=== PATIENT | male | born 1990 | race Caucasian/White ===

== ENCOUNTER 2021-03-27 16:58 | Emergency (ER) | payer SELFPAY ==
[~2021-03-27] VITALS: Ht 170.2 cm; Wt 56.8 kg
[2021-03-27 17:01] VITALS: TEMP 98.4
[2021-03-27 17:57] LABS: BASO # 0.1 (0.0-0.2); EOS # 0.1 (0.0-0.7); EOS % 0.7 % (0-4.0); GRAN # 5.9 (1.4-6.5); GRAN % 63.7 % (42.2-75.2); HEMATOCRIT 44.4 % (42.0-52.0); HEMOGLOBIN 15.4 g/dl (13.5-18.0); LYMPH # 2.1 (1.2-3.4); LYMPH % 22.9 % (20.0-51.0); MEAN CELL VOLUME 84 fl (80.0-100.0); MEAN CORPUSCULAR HEMOGLOBIN 29 pg (27.0-31.0); MEAN CORPUSCULAR HGB CONC 35 g/dl (33.0-37.0); MEAN PLATELET VOLUME 10.4 fl (7.4-10.4); MONO # 1.1 (0.1-0.6); MONO % 11.5 % (1.7-9.3); PLATELET COUNT 276 K/mm3 (130-400); RED BLOOD COUNT 5.26 M/mm3 (4.20-5.60); REDCELL DISTRIBUTION WIDTH-CV 12.2 % (11.5-14.5)
[2021-03-27 18:30] LABS: BILIRUBIN,TOTAL 0.7 mg/dL (0.0-1.0); CALCIUM 10.4 mg/dL (8.4-10.2); CREATININE, serum 0.76 (0.66-1.25); POTASSIUM 3.4 mmol/L (3.4-5.0); TOTAL PROTEIN 8.4 gm/dL (6.4-8.2)
[2021-03-27] MEDS ORDERED: ATIVAN 0.50.5 MG/TAB PO (18:41)
[2021-03-27 19:08] VITALS: BP 118/70; PULSE 72
== END 2021-03-27 19:10 | disposition home or self-care (01) ==
LOC: COL.ER 16:58
PROVIDERS: Nurse Practitioner
DX: F41.0 Panic disorder [episodic paroxysmal anxiety] (principal)
CPT/HCPCS: J2060; J7030

== ENCOUNTER 2021-04-09 12:47 | Emergency (ER) | payer SELFPAY ==
[~2021-04-09] VITALS: Ht 170.2 cm; Wt 54.5 kg
[~2021-04-09 12:47] MED LIST: ATIVAN 0.50.5 MG/TAB PO
[2021-04-09 13:26] VITALS: TEMP 98.6
[2021-04-09] MEDS ORDERED: ATIVAN 0.50.5 MG/TAB PO (13:39)
[2021-04-09 14:18] VITALS: BP 120/85; PULSE 76
== END 2021-04-09 14:19 | disposition home or self-care (01) ==
LOC: COL.ER 12:47
DX: F41.0 Panic disorder [episodic paroxysmal anxiety] (principal); Z79.899 Other long term (current) drug therapy